=== PATIENT | male | born 1955 | race Caucasian/White ===

== ENCOUNTER 2017-04-10 11:10 | Outpatient (CLI) | payer OTHER | END 2017-04-10 11:11 | disposition critical access hospital (66) | LOC: EMS 11:10 | PROVIDERS: ATTEND Surgery | DX: R07.9 Chest pain, unspecified (principal) | CPT/HCPCS: A0425; A0427 ==

== ENCOUNTER 2017-04-10 11:34 | Emergency (ER) | payer OTHER ==
[2017-04-10 12:25] LABS: BASOPHILS % (AUTO) 0.6 %; EOSINOPHILS # (AUTO) 0.1 10^3/uL (0.0-0.7); EOSINOPHILS % (AUTO) 1.4 %; HGB - HEMOGLOBIN 14.3 g/dL (14.0-18.0); LYMPHOCYTES # (AUTO) 1.1 10^3/uL (1.5-3.5); LYMPHOCYTES % (AUTO) 24.9 %; MEAN CORPUSCULAR HEMOGLOBIN 34.1 pg (27.0-31.0); MEAN CORPUSCULAR VOLUME 97.6 fL (80.0-94.0); MEAN PLATELET VOLUME 6.7 fL (7.4-11.4); MONOCYTES # (AUTO) 0.4 10^3/uL (0.0-1.0); MONOCYTES % (AUTO) 9.1 %; NEUTROPHILS # (AUTO) 2.8 10^3/uL (1.5-6.6); RED CELL DISTRIBUTION WIDTH 12.7 % (12.0-15.0); UNCORRECTED WHITE BLOOD COUNT 4.4 x10^3/uL; WHITE BLOOD COUNT 4.4 x10^3/uL (4.8-10.8)
--- NOTE | 2017-04-10 12:30 | XRAY Preliminary Report ---
Exam: XR Chest 1 View IMPRESSION: Normal single view chest. [facility] SITE ID: [id number]
--- NOTE | 2017-04-10 12:33 | XRAY Report ---
EXAM: CHEST RADIOGRAPHY EXAM DATE: 04/10/2017 12:14 PM. CLINICAL HISTORY: Chest pain. COMPARISON: None. TECHNIQUE: Portable AP view. FINDINGS: Lungs/Pleura: No focal opacities evident. No pleural effusion. No pneumothorax. No vascular congestio n. Mediastinum: Within exam limitations of AP film, cardiomediastinal contour is normal. Other: None. IMPRESSION: Normal single view chest. [facility] Referring Provider Line: [phone] SITE ID: [id number]
[2017-04-10 12:38] LABS: ALBUMIN/GLOBULIN RATIO 1.3 (1.0-2.2); BILIRUBIN,TOTAL 0.7 mg/dL (0.2-1.0); CREATININE 0.7 mg/dL (0.6-1.2); POTASSIUM 3.8 mmol/L (3.5-5.0); TOTAL PROTEIN 6.8 g/dL (6.7-8.2)
--- NOTE | 2017-04-10 12:38 | ED Physician Documentation ---
PD HPI CHEST PAIN - Stated complaint Stated Complaint: SOA - Chief complaint Chief Complaint: Cardiac - History obtained from History obtained from: Patient - History of Present Illness Timing - onset: Other (61-year-old gentleman with no significant past medical history, with a lot of family history of coronary disease and valvular disorders. Never had any heart problems. Starting yesterday throughout the day he had exertional shortness of breath with chest pressure, it did not bother him overnight but then came back today at work, he works at a fairly physical job. He feels better now. He has not had any hemoptysis, chest pain per se. No leg pain or swelling although he did recently travel to [place] by car.) Review of Systems Ten Systems: 10 systems reviewed and negative Constitutional: denies: Fever, Chills Cardiac: reports: Chest pain / pressure. denies: Palpitations, Pedal edema, Calf pain Respiratory: reports: Dyspnea. denies: Cough, Hemoptysis, Wheezing PD PAST MEDICAL HISTORY - Past Medical History Past Medical History: No - Past Surgical History Past Surgical History: Yes - Present Medications Home Medications: Ambulatory Orders Medication Instructions Recorded Confirmed Nitroglycerin 0.4 mg SL Q5M PRN #1 bottle 04/10/17 - Allergies Allergies/Adverse Reactions: Allergies Allergy/AdvReac Type Severity Reaction Status Date / Time No Known Drug Allergies Allergy Verified 04/10/17 11:39 - Social History Does the pt smoke?: No Smoking Status: Never smoker - Family History Family history: reports: CAD PD ED PE NORMAL - Vitals Vital signs reviewed: Yes - General General: Alert and oriented X 3, No acute distress - HEENT HEENT: PERRL, EOMI - Neck Neck: Supple, no meningeal sign, No bony TTP - Cardiac Cardiac: RRR, No murmur - Respiratory Respiratory: No respiratory distress, Clear bilaterally - Abdomen Abdomen: Soft, Non tender - Back Back: No CVA TTP, No spinal TTP - Extremities Extremities: No edema, No calf tenderness / cord - Neuro Neuro: Alert and oriented X 3, Normal speech - Psych Psych: Normal mood, Normal affect Results - Vitals Vitals: Vital Signs - 24 hr 04/10/17 04/10/17 11:35 13:11 Temperature 36.6 C Heart Rate 64 72 Respiratory 18 14 Rate Blood Pressure 140/92 H 130/111 H O2 Saturation 98 98 Oxygen O2 Source Room air - EKG (time done) 1140 Rate: Rate (enter#) (66) Rhythm: NSR (with PVC) Mize: Normal Intervals: Other (IVCD) Ischemia: Normal ST segments Computer interpretation: Agree with computer - Labs Labs: Laboratory Tests 04/10/17 04/10/17 04/10/17 12:17 12:17 12:17 WBC 4.4 L RBC 4.20 L Hgb 14.3 Hct 41.0 L MCV 97.6 H MCH 34.1 H MCHC 35.0 RDW 12.7 Plt Count 247 MPV 6.7 L Neut # 2.8 Lymph # 1.1 L [place] # 0.4 Eos # 0.1 Baso # 0.0 Absolute Nucleated RBC 0.00 Nucleated RBCs 0.0 Sodium 140 Potassium 3.8 Chloride 103 Carbon Dioxide 30 Anion Gap 7.0 BUN 15 Creatinine 0.7 Estimated GFR (MDRD) 114 Glucose 96 Calcium 10.0 Total Bilirubin 0.7 AST 25 ALT 26 Alkaline Phosphatase 70 Troponin I < 0.04 Total Protein 6.8 Albumin 3.8 Globulin 3.0 Albumin/Globulin Ratio 1.3 Lipase 27 PD MEDICAL DECISION MAKING - ED course ED course: 61-year-old gentleman with new onset chest pressure and shortness of breath at exertion, concerning for new onset angina. He has no rest angina. Objective workup here is normal despite being symptomatic for most of the day yesterday. I spoke with the hospitalist here, Dr. Alamo, he is not certified to do stress testing, so I spoke with Dr. Barillas who will have his office call him instead up and expedited stress test. He requests no beta-blockers in the interim as that will obscure the results. Departure - Departure Disposition: 01 Home, Self Care Clinical Impression: Angina pectoris Condition: Good Record reviewed to determine appropriate education?: Yes Instructions: Angina Dc Follow-Up: Andrea Barillas MD [Provider Admit Priv/Credential] - Prescriptions: Nitroglycerin 0.4 mg SL Q5M PRN #1 bottle PRN Reason: Chest Pain Comments: Return if you develop recurrent chest pain or trouble breathing. Rest and do not exert yourself until cleared by the stress test. Dr. Barillas's office should be calling you to set that up. Take a baby aspirin every day.
[2017-04-10 13:35] VITALS: BP 124/82
== END 2017-04-10 13:35 | disposition home or self-care (01) ==
LOC: EDUNIT# → ED 11:34
DX: I20.9 Angina pectoris, unspecified (principal); Z82.49 Family history of ischemic heart disease and other diseases of the circulatory system
CPT/HCPCS: 36415; 71010; 80053; 83690; 84484; 85025; 93005; 99284

== ENCOUNTER 2017-04-15 06:49 | Outpatient (CLI) | payer OTHER ==
--- NOTE | 2017-04-15 08:51 | CARDIAC PROCEDURE NOTE ---
DATE OF SERVICE: 04/15/2017 00:00:00 PROCEDURE: Yobani protocol treadmill for echocardiographic imaging. INDICATIONS: A 61-year-old male with a very dramatic family history of coronary disease presenting wi th atypical exertional chest discomfort. ER evaluation negative. PROCEDURE: The patient exercised just shy of 9 minutes terminating as he had reached his 85% maximum predicted heart rate. He had a moderate number of PACs and PVCs at rest. At times during the exercise , these became a bit more pronounced. He had 3 ventricular couplets, but no prolonged ventricular tac hyarrhythmias. At one point he had 30-40 seconds worth of bigeminy. The patient was noted during shana very to have completely resolved any ectopy. He experienced no chest heaviness. He actually felt bett er after he had been exercising for a while, admitting he was quite nervous when he came in. He has n o diagnostic ST or T-wave changes. IMPRESSION: A moderate amount of ectopy in a patient with multiple cardiac risks undergoing treadmill testing for echocardiographic imaging. See echo report for details. ADDENDUM: Pre-treadmill exam revealed clear lungs and irregular heart with no obvious gallop. JOB #: [id number] EXT JOB #:[id number]
[2017-04-15 09:56] VITALS: BP 142/86
== END 2017-04-15 06:50 | disposition home or self-care (01) ==
LOC: DI 06:49
PROVIDERS: ATTEND Internal Medicine
DX: R07.89 Other chest pain (principal); R06.00 Dyspnea, unspecified
CPT/HCPCS: 93350

== ENCOUNTER 2017-07-18 08:03 | Outpatient (CLI) | payer OTHER ==
[2017-07-18 08:40] LABS: CALCIUM 9.8 mg/dL (8.5-10.3); CREATININE 0.7 mg/dL (0.6-1.2); POTASSIUM 3.5 mmol/L (3.5-5.0)
== END 2017-07-18 08:04 | disposition home or self-care (01) ==
LOC: LAB 08:03
PROVIDERS: ATTEND Internal Medicine Cardiovascular Disease
DX: R06.09 Other forms of dyspnea (principal)
CPT/HCPCS: 36415; 80048

== ENCOUNTER 2018-09-08 16:16 | Outpatient (CLI) | payer OTHER | END 2018-09-08 16:17 | disposition home or self-care (01) | LOC: SC 16:16 | PROVIDERS: ATTEND Nurse Practitioner Family | DX: G47.33 Obstructive sleep apnea (adult) (pediatric) (principal) | CPT/HCPCS: 99212; 99214 ==

== ENCOUNTER 2018-12-09 15:56 | Outpatient (CLI) | payer OTHER | END 2018-12-09 15:57 | disposition home or self-care (01) | LOC: SC 15:56 | PROVIDERS: ATTEND Nurse Practitioner Family | DX: G47.33 Obstructive sleep apnea (adult) (pediatric) (principal) | CPT/HCPCS: 99212; 99213 ==

== ENCOUNTER 2020-07-10 08:06 | Outpatient (CLI) | payer OTHER, MEDICARE ==
--- NOTE | 2020-07-10 09:00 | SLEEP CARE CONSULTATION ---
Information from patient questionnaire entered by Rhonda Redmond. I have reviewed and concur with the information entered by Rhonda Redmond. This document represents the service I personally performed and the decisions made by , Afua Jordan ARNP. History of Present Illness Service Date and Time: 07/10/2020 0806 Previous diagnosis: Moderate (RDI 22), Obstructive Sleep Apnea-Hypopnea Syndrome (RDI = 22) Reason for follow up: annual (last seen 11/2018), other (Transfer of DME) Equipment type: CPAP Equipment obtained from: Other ([employer]; unable to get from [facility] anymore) Mask style: Nasal Backup mask available: Yes (other mask) Last cushion change: 2 weeks ago HPI additional information: WERO ELDER was diagnosed to have moderate, RDI 22, obstructive sleep apnea- hypopnea syndrome and returned today for CPAP therapy annual follow-up. CPAP Compliance Data - Data Reviewed with Patient Average duration of nightly device use: 9 hours 34 minutes Compliance rate %: 98.9 Current pressure setting (cmH2O): 10 Humidity settin Average residual AHI: 0.7 Average large leak: 20 seconds Compliance data discussion: CPAP machine has stopped working with an error message to obtain serving. He needs current prescription because it is still under warranty for servicing and updating supplies. He needs a new DME since [facility] is no longer doing CPAP supplies. Subjective Patient concerns: denies: aerophagia, mask discomfort, air blowing in eyes, mask leak noise, condensation in mask/hose, nasal congestion, dry mouth, nose, throat, epistaxis, other Observed to snore while using device: No Current pressure setting perceived as: comfortable On therapy, patient: reports: sleeping better, awakening more refreshed, being more awake and alert during the day, more rested overall. denies: drowsiness while driving Initial [place] Sleepiness Scale score: 7 Current [place] Sleepiness Scale score: 4 Allergies and Home Medications Drug allergies reviewed: Yes (NKDA) Home medication list reviewed: Yes (no changes) Review of Systems Review of systems same as previous: No (Total Right knee; Left knee arthroscopy) Physical Exam Heart Rate: 61 O2 Saturation: 98 Height: 5 ft 6 in Weight: 195 lb Body Mass Index: 31.4 BMI Classification: Obese Impression and Plan 1. Obstructive Sleep Apnea-Hypopnea Syndrome, moderate with RDI = 22, with good treatment compliance and good apnea control. On CPAP therapy, the patient has be tter sleep quality and is more rested overall. Patient unable to obtain supplies since his last DME does not provide CPAP supplies anymore. Patient was informed that another DME can be used. I will have my workers compensation coordinator inform of DME options. He also needs his machine serviced due to a malfunctioning error message. The DME he wants to use is just waiting for a transfer of care to take care of his machine. He has been using his back up machine since the other one does not work. A DWO prescription will then be made. Patient advised to contact this office if further supply problems. Patient's apnea severity and rationale for treatment to reduce apnea, improve sleep quality and reduce cardiovascular and cerebrovascular events was reviewed. * Continue auto CPAP pressure at 10 cmH2O * Notify me if snoring with mask or feeling that the pressure is too much or too little * Attempt to lose weight * Call this office if any problems using CPAP * Return for follow up in 1 year, or sooner if concerns arise Counseling Topics: Spare mask, Weight loss health impact Visit Type: In Office Time Spent with Patient (minutes): 17 Provider Statement: I spent 100% of the Face to Face Visit with the patient with greater than 50% spent counseling the patient and coordination of care.
== END 2020-07-10 08:07 | disposition home or self-care (01) ==
LOC: SC 08:06
PROVIDERS: ATTEND Nurse Practitioner Family
DX: G47.33 Obstructive sleep apnea (adult) (pediatric) (principal); E66.9 Obesity, unspecified; Z68.31 Body mass index [BMI] 31.0-31.9, adult
CPT/HCPCS: 99212; 99213

== ENCOUNTER 2021-01-31 14:42 | Outpatient (CLI) | payer OTHER | END 2021-01-31 14:43 | disposition critical access hospital (66) | LOC: EMS 14:42 | DX: R53.1 Weakness (principal) | CPT/HCPCS: A0425; A0429 ==

== ENCOUNTER 2021-01-31 15:06 | Emergency (ER) | payer MEDICARE, OTHER ==
--- NOTE | 2021-01-31 15:38 | ED Physician Documentation ---
History of Present Illness - Stated complaint Stated Complaint: DIZZY - Chief complaint Chief Complaint: General - History obtained from History obtained from: Patient - Additonal information Additional information: Patient comes emergency department via EMS with chief complaint of palpitations. Patient's had palpitations on and off for about a year and states that they seem to come and go. He states he also had them about 10 years ago and had a full work-up at that time, which did not reveal anything of concern. Patient denies chest pain. No shortness of breath or nausea. He states that he was at work when this started today that he sat down in a chair. He states he was nervous about the palpitations because he was not sure what was causing them, and somebody called EMS for him. Patient states in route, the palpitations seem to calm down and he is feeling a little better now. No lightheadedness or near syncope. No other complaints at this time. Review of Systems Ten Systems: 10 systems reviewed and negative Constitutional: reports: Reviewed and negative Eyes: reports: Reviewed and negative Ears: reports: Reviewed and negative Nose: reports: Reviewed and negative Throat: reports: Reviewed and negative Cardiac: reports: Palpitations Respiratory: reports: Reviewed and negative GI: reports: Reviewed and negative : reports: Reviewed and negative Skin: reports: Reviewed and negative Musculoskeletal: reports: Reviewed and negative Neurologic: reports: Reviewed and negative Psychiatric: reports: Reviewed and negative Endocrine: reports: Reviewed and negative Immunocompromised: reports: Reviewed and negative PD PAST MEDICAL HISTORY - Past Medical History Past Medical History: Yes Cardiovascular: High cholesterol, Murmur GI: Ulcers - Past Surgical History Past Surgical History: Yes Ortho: Knee replacement, Arthroscopic surgery - Present Medications Home Medications: Ambulatory Orders Medication Instructions Recorded Confirmed No Known Home Medications 01/31/21 01/31/21 - Allergies Allergies/Adverse Reactions: Allergies Allergy/AdvReac Type Severity Reaction Status Date / Time No Known Drug Allergies Allergy Verified 04/10/17 11:39 - Social History Does the pt smoke?: No Smoking Status: Never smoker Does the pt have substance abuse?: No PD ED PE NORMAL - Vitals Vital signs reviewed: Yes - General General: Alert and oriented X 3, No acute distress, Well developed/nourished - HEENT HEENT: Atraumatic, PERRL, EOMI, Moist mucous membranes - Neck Neck: Supple, no meningeal sign - Cardiac Cardiac: RRR, No murmur, Strong equal pulses - Respiratory Respiratory: No respiratory distress, Clear bilaterally - Abdomen Abdomen: Soft, Non tender, Non distended - Derm Derm: Normal color, Warm and dry, No rash - Extremities Extremities: No deformity, No edema, No calf tenderness / cord - Neuro Neuro: Alert and oriented X 3, 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 No: T wave inversion Compare to prior EKG: Old EKG unavailable - Labs Labs: Laboratory Tests 01/31/21 01/31/21 01/31/21 15:43 15:43 15:43 WBC 5.5 RBC 3.86 L Hgb 13.1 L Hct 38.8 L MCV 100.5 H MCH 33.9 H MCHC 33.8 RDW 12.5 Plt Count 261 MPV 8.4 Neut # (Auto) 3.7 Lymph # (Auto) 1.1 L [place] # (Auto) 0.6 Eos # (Auto) 0.1 Baso # (Auto) 0.0 Absolute Nucleated RBC 0.00 Nucleated RBC % 0.0 Sodium 136 Potassium 3.4 L Chloride 102 Carbon Dioxide 26 Anion Gap 8.0 BUN 14 Creatinine 0.7 Estimated GFR (MDRD) 112 Glucose 90 Calcium 9.6 Total Bilirubin 0.8 AST 23 ALT 23 Alkaline Phosphatase 70 Total Protein 6.6 L Albumin 3.7 Globulin 2.9 Albumin/Globulin Ratio 1.3 Lipase 28 TSH 0.55 PD MEDICAL DECISION MAKING - ED course Complexity details: reviewed results, re-evaluated patient, considered differential, d/w patient ED course: Patient was worked up with labs and EKG, and placed on the director of cardiac rehabilitation. He declined IV fluids in the emergency department. Patient was found to have occasional PVCs here in the ED and had been reported to have the same en route. Work-up was unremarkable. Pt was found to be moderately hypertensive in the ED, but stated that he checks regularly, and usually is 110-120/70-80's. I d/w pt the importance of getting established with primary care, and have given pt some options for this. Departure - Departure Disposition: 01 Home, Self Care Clinical Impression: PVCs (premature ventricular contractions) Condition: Stable Instructions: Premature Ventricular Contract About Follow-Up: [facility] [Provider Group] Comments: The labs overall look good. The sense of palpitations it appears to most likely be caused by premature ventricular complexes, the "extra beats" that we were discussing earlier. Your potassium was slightly low today and you have been treated with a dose of potassium for this year. Please follow-up in primary care to get established for general health care and also, to discuss wearing an event monitor to get a better look at what is going on with your heart when you feel the palpitations. There is no evidence of a more serious condition at this time. Discharge Date/Time: 01/31/21 16:30
[2021-01-31 15:48] LABS: BASOPHILS % (AUTO) 0.4 %; EOSINOPHILS # (AUTO) 0.1 10^3/uL (0.0-0.7); EOSINOPHILS % (AUTO) 0.9 %; HCT - HEMATOCRIT 38.8 % (42.0-52.0); HGB - HEMOGLOBIN 13.1 g/dL (14.0-18.0); LYMPHOCYTES # (AUTO) 1.1 10^3/uL (1.5-3.5); LYMPHOCYTES % (AUTO) 20.1 %; MEAN CORPUSCULAR HEMOGLOBIN 33.9 pg (27.0-31.0); MEAN CORPUSCULAR HGB CONC 33.8 g/dL (32.0-36.0); MEAN CORPUSCULAR VOLUME 100.5 fL (80.0-94.0); MEAN PLATELET VOLUME 8.4 fL (7.4-11.4); MONOCYTES # (AUTO) 0.6 10^3/uL (0.0-1.0); MONOCYTES % (AUTO) 10.4 %; NEUTROPHILS # (AUTO) 3.7 10^3/uL (1.5-6.6); NEUTROPHILS % (AUTO) 68.2 %; PLT - PLATELET COUNT 261 10^3/uL (130-450); RED BLOOD COUNT 3.86 10^6/uL (4.70-6.10); RED CELL DISTRIBUTION WIDTH 12.5 % (12.0-15.0); WHITE BLOOD COUNT 5.5 x10^3/uL (4.8-10.8)
[2021-01-31 16:02] LABS: ALBUMIN 3.7 g/dL (3.2-5.5); ALBUMIN/GLOBULIN RATIO 1.3 (1.0-2.2); BILIRUBIN,TOTAL 0.8 mg/dL (0.2-1.0); CALCIUM 9.6 mg/dL (8.5-10.3); CREATININE 0.7 mg/dL (0.6-1.2); POTASSIUM 3.4 mmol/L (3.5-5.0); TOTAL PROTEIN 6.6 g/dL (6.7-8.2)
[2021-01-31] MEDS ORDERED: POTASSIUM CHLORIDE 20 MEQ TABLET PO STA (16:16)
[2021-01-31 16:20] VITALS: BP 140/85
== END 2021-01-31 16:30 | disposition home or self-care (01) ==
LOC: EDUNIT# → SUPCPDRO 15:06 → ED 15:06
DX: I49.3 Ventricular premature depolarization (principal); I45.10 Unspecified right bundle-branch block
CPT/HCPCS: 36415; 80053; 83690; 84443; 85025; 93005; 99283; 99284; A9270

== ENCOUNTER 2021-02-03 17:15 | Emergency (ER) | payer OTHER ==
--- OUTSIDE RECORDS SUMMARY | 2021-02-03 17:18 | EXTERNAL MEDICAL SUMMARY RPT | Continuity of Care Document ---
:1955 Demographics Phone Unavailable Preferred Language Unknown Marital Status Unknown Pentecostal Affiliation Unknown Race Unknown Ethnic Group Unknown Author Organization [facility] Address [address] [phone] Phone Allergies Encounters Medications Problems Results
[2021-02-03] MEDS ORDERED: METOPROLOL 5 MG/5 ML VIAL IVP STA (17:35)
--- NOTE | 2021-02-03 17:36 | ED Physician Documentation ---
PD HPI CHEST PAIN - Stated complaint Stated Complaint: HEART PALPITATIONS/NAUSEA - Chief complaint Chief Complaint: Cardiac - History obtained from History obtained from: Patient - Additional information Additional information: 65-year-old gentleman on no meds has had trouble with palpitations this week. He had a remotely and thorough work-up including stress echo and event monitor were negative. Started again this week for unclear reasons. Its just a heavy irregular heartbeat. When it is bad it is associated with shortness of breath. No associated chest pain pedal edema or calf pain. Seen here a few days ago and diagnosed with PVCs. Review of Systems Constitutional: denies: Fever, Chills Eyes: denies: Loss of vision, Photophobia Nose: denies: Rhinorrhea / runny nose Throat: denies: Sore throat Cardiac: reports: Palpitations. denies: Chest pain / pressure Respiratory: denies: Dyspnea, Cough PD PAST MEDICAL HISTORY - Past Medical History Past Medical History: Yes Cardiovascular: High cholesterol, Murmur Neuro: Parkinson's GI: Ulcers - Past Surgical History Past Surgical History: Yes Ortho: Knee replacement, Arthroscopic surgery - Present Medications Home Medications: Ambulatory Orders Medication Instructions Recorded Confirmed Metoprolol Tartrate [Lopressor] 25 mg PO BID PRN #60 tablet 02/03/21 Potassium Chloride 20 meq PO DAILY #7 02/03/21 - Allergies Allergies/Adverse Reactions: Allergies Allergy/AdvReac Type Severity Reaction Status Date / Time No Known Drug Allergies Allergy Verified 02/03/21 17:24 - Social History Does the pt smoke?: No Smoking Status: Never smoker Does the pt have substance abuse?: No PD ED PE NORMAL - Vitals Vital signs reviewed: Yes - General General: Alert and oriented X 3, No acute distress, Well developed/nourished - HEENT HEENT: PERRL, EOMI - Neck Neck: Supple, no meningeal sign, No bony TTP - Cardiac Cardiac: RRR, No murmur - Respiratory Respiratory: No respiratory distress, Clear bilaterally - Abdomen Abdomen: Non tender - Back Back: No CVA TTP, No spinal TTP - Derm Derm: Normal color, Warm and dry - Extremities Extremities: No edema, No calf tenderness / cord - Neuro Neuro: Alert and oriented X 3, Normal speech Results - Vitals Vitals: Vital Signs - 24 hr 02/03/21 02/03/21 02/03/21 17:18 17:28 17:58 Temperature 36.3 C L Heart Rate 68 64 73 Respiratory 28 H 15 10 L Rate Blood Pressure 158/97 H 158/97 H 138/54 H O2 Saturation 97 98 98 02/03/21 18:02 Temperature Heart Rate 68 Respiratory 11 L Rate Blood Pressure 134/82 H O2 Saturation 98 Oxygen O2 Source Room air - EKG (time done) 1719 Rate: Rate (enter#) (71) Rhythm: NSR (w pvcs) [place]: Normal Intervals: Normal TN, Other (IVCD) Ischemia: Normal ST segments - Labs Labs: Laboratory Tests 02/03/21 02/03/21 02/03/21 17:26 17:26 17:26 WBC 7.0 RBC 4.24 L Hgb 14.6 Hct 42.2 MCV 99.5 H MCH 34.4 H MCHC 34.6 RDW 12.4 Plt Count 274 MPV 8.6 Neut # (Auto) 5.0 Lymph # (Auto) 1.2 L [place] # (Auto) 0.7 Eos # (Auto) 0.1 Baso # (Auto) 0.0 Absolute Nucleated RBC 0.00 Nucleated RBC % 0.0 Sodium 137 Potassium 3.4 L Chloride 103 Carbon Dioxide 25 Anion Gap 9.0 BUN 12 Creatinine 0.6 Estimated GFR (MDRD) 134 Glucose 96 Calcium 10.0 Magnesium 2.1 Troponin I High Sens 7.6 PD MEDICAL DECISION MAKING - ED course ED course: 65-year-old gentleman presents with symptomatic PVCs. There are regular on the monitor, sometimes going minutes without them but sometimes trigeminal. We will trial low-dose beta-blockade to see if that is helpful for his symptoms. Recheck his labs including electrolytes. 65-year-old gentleman with ongoing palpitations related to PVCs. He was given a dose of IV Lopressor here which was very helpful for his symptoms. Potassium still borderline low and I will write for a week's worth of supplementation and he is given a as needed prescription for metoprolol. Departure - Departure Disposition: 01 Home, Self Care Clinical Impression: PVCs (premature ventricular contractions) Condition: Good Record reviewed to determine appropriate education?: Yes Instructions: ED Dysrhythmia Unspecified Prescriptions: Metoprolol Tartrate [Lopressor] 25 mg PO BID PRN #60 tablet PRN Reason: palpitations Potassium Chloride 20 meq PO DAILY #7 Comments: Call your doctor to arrange a follow-up appointment, make the next available appointment. In the interim, return anytime if worse or if new symptoms develop. You can take the metoprolol as needed for symptoms. No more than twice a day. Forms: Activity restrictions
--- OUTSIDE RECORDS SUMMARY | 2021-02-03 17:41 | EXTERNAL MEDICAL SUMMARY RPT | Continuity of Care Document ---
:1955 Demographics Phone Unavailable Preferred Language Unknown Marital Status Unknown Church Affiliation Unknown Race Unknown Ethnic Group Unknown Author Organization [facility] Address [address] [phone] Phone Allergies Encounters Medications Problems Results
[2021-02-03 17:43] LABS: BASOPHILS % (AUTO) 0.3 %; EOSINOPHILS # (AUTO) 0.1 10^3/uL (0.0-0.7); EOSINOPHILS % (AUTO) 1.1 %; HCT - HEMATOCRIT 42.2 % (42.0-52.0); HGB - HEMOGLOBIN 14.6 g/dL (14.0-18.0); LYMPHOCYTES # (AUTO) 1.2 10^3/uL (1.5-3.5); LYMPHOCYTES % (AUTO) 17.5 %; MEAN CORPUSCULAR HEMOGLOBIN 34.4 pg (27.0-31.0); MEAN CORPUSCULAR HGB CONC 34.6 g/dL (32.0-36.0); MEAN CORPUSCULAR VOLUME 99.5 fL (80.0-94.0); MEAN PLATELET VOLUME 8.6 fL (7.4-11.4); MONOCYTES # (AUTO) 0.7 10^3/uL (0.0-1.0); MONOCYTES % (AUTO) 9.7 %; NEUTROPHILS % (AUTO) 71.3 %; PLT - PLATELET COUNT 274 10^3/uL (130-450); RED BLOOD COUNT 4.24 10^6/uL (4.70-6.10); RED CELL DISTRIBUTION WIDTH 12.4 % (12.0-15.0)
[2021-02-03 17:48] LABS: CREATININE 0.6 mg/dL (0.6-1.2); MAGNESIUM 2.1 mg/dL (1.7-2.8); POTASSIUM 3.4 mmol/L (3.5-5.0)
[2021-02-03 18:32] VITALS: BP 113/92
== END 2021-02-03 18:46 | disposition home or self-care (01) ==
LOC: ED 17:15
DX: I49.3 Ventricular premature depolarization (principal); G20 Parkinson's disease
CPT/HCPCS: 36415; 80048; 83735; 84484; 85025; 93005; 99283; 99284